=== PATIENT | female | born 1965 | race Caucasian/White ===

== ENCOUNTER 2022-06-24 14:59 | Outpatient (CLI) | payer OTHER ==
[2022-06-24 15:47] VITALS: BP 118/70
--- NOTE | 2022-06-24 15:47 | SLEEP CARE CONSULTATION ---
Information from patient questionnaire entered by Lashay Diaz. I have reviewed and concur with the information entered by Lashay Diaz. This document represents the service I personally performed and the decisions made by me, Rosa M Ball ARNP. History of Present Illness Service Date and Time: 06/24/2022 1459 Reason for Visit: New patient, Previously diagnosed sleep apnea, sleep apnea on CPAP therapy Chief Complaint: reports: Insomnia, Snoring, Excessive daytime sleepiness Date of Onset: 10YRS Usual bedtime: 12AM Time it takes to fall asleep: 1HR+ Snores at night: Yes Observed to quit breathing while asleep: Yes Sleeps alone due to snoring: No Number of times waking at night: 2 Reasons for waking at night: reports: Choking, Snoring, Pain Toss, Turn, or Twitch while sleeping: Yes Recalls having dreams: No Usually gets out of bed at: 6AM Feels refreshed in the morning: Yes Morning headache: Yes (RESOLVES AFTER MEDS AND WATER) Sleepy or fatigued during the day: Yes Ever fallen asleep while driving: Yes Takes day naps: Yes Dreams during day naps: No Prior sleep studies: Yes (DEVIN HASSAN 2014) Additional HPI information: ALFREDITO SARAH was previously diagnosed to have unknown, AHI unknown, sleep apnea-hypopnea syndrome and comes in today to establish care for CPAP therapy. - Parasomnia Symptoms Ever been unable to move upon waking from sleep: No Walks in sleep: No Talks in sleep: No Ever acted out dreams in sleep: No Ever felt weak in the knees when startled or emotional: No Bothered by creepy, crawly, restless sensations in legs: Yes Problems with memory or concentration: Yes CPAP Compliance Data - Data Reviewed with Patient Average duration of nightly device use: 7 hours 16 minutes Compliance rate %: 94 (89/90 days used) Current pressure setting (cmH2O): 13 Average residual AHI: 0.8 Central apnea: 0.1 Obstructive apnea: 0.5 Compliance data discussion: She has a ResMed Airsense 10 last set up 08/2015. She states she is "sabianism" about using her CPAP, loves it. She is using a Dreamwear nasal cushion. She used to get supplies in [place] but has been about 2 years since she has been able to get supplies. Subjective Patient concerns: reports: dry mouth, nose, throat (sometimes, water used up in 2 nights). denies: aerophagia, mask discomfort, air blowing in eyes, mask leak noise, condensation in mask/hose, nasal congestion, epistaxis Observed to snore while using device: No Current pressure setting perceived as: comfortable On therapy, patient: reports: sleeping better, awakening more refreshed, being more awake and alert during the day, more rested overall. denies: drowsiness while driving Initial [place] Sleepiness Scale score: 20 (06/24/22) Past Medical History Past Medical History: reports: Diabetes, Arthritis, Anxiety, Depression, GERD, Other (NEUROPATHY, RESTLESS LEGS ) Social History The patient's occupation is a RE. Patient is and lives in . Have you smoked in the past 12 months: No Years of smokin Quit date: 2002 Alcohol use: No Caffeine use: Yes Caffeine amount and frequency: 2 CUPS DAILY Family History Family history of sleep disordered breathing: Yes (2 children have sleep apnea (son, daughter)) Family Hx Sleep Apnea: Father: Snoring, Sleep apnea - Untreated, Sibling: Snoring, Sleep apnea - Treated Allergies and Home Medications Known drug allergies: Yes (PENICILLIN SULFA METFORMIN ) Drug allergies reviewed: Yes Home medication list reviewed: Yes (see updated list in EMR) Review of Systems Weight gain over past 5 years: 45 Cardiovascular: reports: palpitations, leg or foot swelling Respiratory: reports: shortness of breath Gastrointestinal: reports: heartburn, difficulty swallowing, nausea, diarrhea Neurological: reports: headaches, disorientation, gait or balance problems Psychiatric: reports: Attention Deficit Hyperactivity, anxiety, depression Ear/Nose/Throat: reports: nasal congestion, sinus problems, tonsillectomy, wisdom teeth removed Endocrine: reports: sluggishness, too hot or cold Musculoskeletal: reports: joint pain, back pain Immunologic: reports: sneezing, allergies to food or environment Physical Exam Vital signs obtained and entered by: LASHAY Allen MA Blood Pressure: 118/70 (LEFT ARM) Cuff size: long Heart Rate: 78 O2 Saturation: 97 Height: 5 ft 5 in Weight: 286 lb 9.6 oz Body Mass Index: 47.7 BMI Classification: Morbidly Obese Neck circumference: 17.5 Impression and Plan 1. Obstructive Sleep Apnea-Hypopnea Syndrome, unknown, with good treatment compliance and good apnea control. On CPAP therapy, the patient has better sleep quality and is more rested overall. She moved her from [place] and does not have a copy of her last sleep study. She is not sure she can get this. We will try but I will go ahead and order a sleep study to verify diagnosis and severity with a 45 pound weight gain over the last few years. Patient's apnea severity and rationale for treatment to reduce apnea, improve sleep quality and reduce cardiovascular and cerebrovascular events was reviewed. I also reviewed the benefit of consistent device use of CPAP for diabetes, gastric reflux and depression. 2. Obesity, unspecified. Currently patients BMI is 47.7. Obesity increases the risk of apnea, CPAP pressure requirements and overall health risks especially cardiovascular and diabetes. Thus patient is advised to lose weight. * Continue auto CPAP pressure at 13 cmH2O * PSG/HST to verify diagnosis and severity * Transfer DME once we have a copy of sleep study or after sleep study completed * Update supplies and machine once we have sleep study * Notify me if snoring with mask or feeling that the pressure is too much or too little * Attempt to lose weight * Call this office if any problems using CPAP * Return for follow up after sleep study or one month after obtaining new device, or sooner if concerns arise Counseling Topics: Spare mask, Weight loss health impact Visit Type: In Office Time Spent with Patient (minutes): 35 Provider Statement: I spent 100% of the Face to Face Visit with the patient with greater than 50% spent counseling the patient and coordination of care.
== END 2022-06-24 15:00 | disposition home or self-care (01) ==
LOC: SC 14:59
PROVIDERS: ATTEND Nurse Practitioner Family
DX: G47.33 Obstructive sleep apnea (adult) (pediatric) (principal); E66.01 Morbid (severe) obesity due to excess calories; Z68.42 Body mass index [BMI] 45.0-49.9, adult; Z87.891 Personal history of nicotine dependence
CPT/HCPCS: 99203; 99212

== ENCOUNTER 2022-12-16 13:38 | Emergency (ER) | payer OTHER ==
[2022-12-16] MEDS ORDERED: SODIUM CHLORIDE 0.9% 1,000 ML IV STA (14:11)
[2022-12-16] MEDS ORDERED: ONDANSETRON 4 MG/2 ML VIAL IVP STA (14:11)
[2022-12-16] MEDS ORDERED: LACTATED RINGERS 1,000 ML IV STA (14:11)
--- NOTE | 2022-12-16 14:12 | ED Physician Documentation ---
PD HPI ABD PAIN - Stated complaint Stated Complaint: N/V/D,SOA,LIGHT HEADED - Chief complaint Chief Complaint: Abd Pain - History obtained from History obtained from: Patient - Additional information Additional information: 57-year-old woman with history of HTN, HLD, IBS, remote oophorectomy and type II DM on Trulicity. 4 days ago developed diarrhea and stomach cramping and now has had progressive nausea and cannot keep anything down today. Her stomach really only hurts when she hides to eat something. No fevers but has had some chills. She notes that her dog was recently diagnosed with Giardia. No recent travel, camping, or antibiotic use. PD PAST MEDICAL HISTORY - Present Medications Home Medications: Ambulatory Orders Medication Instructions Recorded Confirmed Atorvastatin Calcium See Rx Instructions .ROUTE .COMPLEX 06/24/22 12/16/22 Celecoxib [CeleBREX] See Rx Instructions .ROUTE .COMPLEX 06/24/22 12/16/22 Cetirizine [ZyrTEC] See Rx Instructions .ROUTE .COMPLEX 06/24/22 12/16/22 Dulaglutide [Trulicity] See Rx Instructions .ROUTE .COMPLEX 06/24/22 12/16/22 Lisinopril [Zestril] See Rx Instructions .ROUTE .COMPLEX 06/24/22 12/16/22 Multivitamin See Rx Instructions .ROUTE .COMPLEX 06/24/22 12/16/22 Omeprazole See Rx Instructions .ROUTE .COMPLEX 06/24/22 12/16/22 Pregabalin [Lyrica] See Rx Instructions .ROUTE .COMPLEX 06/24/22 12/16/22 Sertraline [Zoloft] See Rx Instructions .ROUTE .COMPLEX 06/24/22 12/16/22 Ciprofloxacin HCl [Cipro] 500 mg PO BID #14 tablet 12/16/22 Metoclopramide [Reglan] 10 mg PO Q6H PRN #20 tablet 12/16/22 metroNIDAZOLE [Flagyl] 500 mg PO TID 7 Days #21 tablet 12/16/22 - Allergies Allergies/Adverse Reactions: Allergies Allergy/AdvReac Type Severity Reaction Status Date / Time metformin Allergy Unknown Verified 12/16/22 13:51 Penicillins Allergy Unknown Verified 12/16/22 13:51 PD ED PE NORMAL - Vitals Vital signs reviewed: Yes - General General: Alert and oriented X 3, No acute distress - Abdomen Abdomen: Normal bowel sounds, Soft, Non tender - Neuro Neuro: Alert and oriented X 3, Normal speech Results - Vitals Vitals: Vital Signs - 24 hr 12/16/22 12/16/22 12/16/22 13:46 15:59 17:58 Temperature 37.3 C Heart Rate 115 H 98 81 Respiratory 18 20 20 Rate Blood Pressure 128/85 H 119/77 101/55 L O2 Saturation 96 100 92 12/16/22 12/16/22 19:00 20:28 Temperature Heart Rate 84 85 Respiratory 18 18 Rate Blood Pressure 114/56 L 100/68 O2 Saturation 100 99 Oxygen O2 Source Room air - Labs Labs: Laboratory Tests 12/16/22 12/16/22 14:25 14:25 WBC 18.4 H RBC 5.41 H Hgb 14.5 Hct 44.4 MCV 82.1 MCH 26.8 L MCHC 32.7 RDW 13.2 Plt Count 317 MPV 9.9 Neut # (Auto) 15.5 H Lymph # (Auto) 1.6 Grayson # (Auto) 1.2 H Eos # (Auto) 0.0 Baso # (Auto) 0.1 Absolute Nucleated RBC 0.00 Nucleated RBC % 0.0 Sodium 138 Potassium 3.4 L Chloride 104 Carbon Dioxide 25 Anion Gap 9.0 BUN 13 Creatinine 1.0 Estimated GFR (MDRD) 57 L Glucose 144 H Calcium 9.4 Total Bilirubin 0.8 AST 17 ALT 21 Alkaline Phosphatase 92 Total Protein 7.4 Albumin 4.3 Globulin 3.1 Albumin/Globulin Ratio 1.4 Lipase 23 - Rads (name of study) ct a/p Relevant Findings:: Final report received, EMP independent interpretation of test PD Medical Decision Making - ED course ED course: 57-year-old woman presents with abdominal pain, vomiting and diarrhea. She has a modestly elevated white count on CBC which was otherwise normal CMP which was grossly negative. CT showing colitis. In the emergency department she was treated with IV fluids, 2 L of crystalloid, and Zofran which was unhelpful but Reglan and Toradol which was fairly helpful for her pain and nausea. She was unable to have a bowel movement in the department. So we were unable to collect stool for studies, but CT showing colitis so reasonable to treat with Cipro and Flagyl. Departure - Departure Disposition: 01 Home, Self Care Clinical Impression: Colitis Condition: Good Record reviewed to determine appropriate education?: Yes Instructions: ED Gastroenteritis Bacterial Prescriptions: Ciprofloxacin HCl [Cipro] 500 mg PO BID #14 tablet metroNIDAZOLE [Flagyl] 500 mg PO TID 7 Days #21 tablet Metoclopramide [Reglan] 10 mg PO Q6H PRN #20 tablet PRN Reason: nausea or headache Comments: You were seen today for abdominal pain nausea and diarrhea. Your white blood cell count was out elevated and the CT was showing mild ascending colitis which does fit the clinical picture. For this I am sending antibiotics and nausea medicine up to [facility] in [place]. Return if worse. Follow-up with your primary care physician in 2 days for recheck. Given that she had a colonoscopy in the last year, unlikely that that would be of further diagnostic benefit after this event but you can also discuss this with your primary as well. Forms: PCP List Discharge Date/Time: 12/16/22 20:29
[2022-12-16 14:39] LABS: BASOPHILS # (AUTO) 0.1 10^3/uL (0.0-0.1); BASOPHILS % (AUTO) 0.4 %; EOSINOPHILS % (AUTO) 0.2 %; HCT - HEMATOCRIT 44.4 % (37.0-47.0); HGB - HEMOGLOBIN 14.5 g/dL (12.0-16.0); LYMPHOCYTES # (AUTO) 1.6 10^3/uL (1.5-3.5); LYMPHOCYTES % (AUTO) 8.5 %; MEAN CORPUSCULAR HEMOGLOBIN 26.8 pg (27.0-31.0); MEAN CORPUSCULAR HGB CONC 32.7 g/dL (32.0-36.0); MEAN CORPUSCULAR VOLUME 82.1 fL (81.0-99.0); MEAN PLATELET VOLUME 9.9 fL (7.9-10.8); MONOCYTES # (AUTO) 1.2 10^3/uL (0.0-1.0); MONOCYTES % (AUTO) 6.3 %; NEUTROPHILS # (AUTO) 15.5 10^3/uL (1.5-6.6); NEUTROPHILS % (AUTO) 84.2 %; PLT - PLATELET COUNT 317 10^3/uL (130-450); RED BLOOD COUNT 5.41 10^6/uL (4.20-5.40); RED CELL DISTRIBUTION WIDTH 13.2 % (12.0-15.0); WHITE BLOOD COUNT 18.4 x10^3/uL (4.8-10.8)
[2022-12-16 15:00] LABS: ALBUMIN 4.3 g/dL (3.2-5.5); ALBUMIN/GLOBULIN RATIO 1.4 (1.0-2.2); BILIRUBIN,TOTAL 0.8 mg/dL (0.2-1.0); CALCIUM 9.4 mg/dL (8.5-10.3); POTASSIUM 3.4 mmol/L (3.5-4.5); TOTAL PROTEIN 7.4 g/dL (6.4-8.9)
[2022-12-16] MEDS ORDERED: KETOROLAC 15 MG/ML VIAL IVP STA (15:27)
[2022-12-16] MEDS ORDERED: METOCLOPRAMIDE 10 MG/2 ML VIAL IVP STA (15:27)
[2022-12-16] MEDS ORDERED: iohexoL-300 100 ML VIAL IVP ONE (19:40)
--- NOTE | 2022-12-16 19:53 | CT Report ---
PROCEDURE: ABDOMEN/PELVIS W INDICATIONS: IV only, abd pain CONTRAST: 100mL Omni 300 TECHNIQUE: After the administration of intravenous contrast, 5 mm thick sections acquired from the diaphragms to the symphysis. 5 mm thick coronal and sagittal reformats were acquired. For radiation dose reducti on, the following was used: automated exposure control, adjustment of mA and/or kV according to monisha ent size. COMPARISON: None FINDINGS: Image quality: Decreased due to body habitus and technical artifacts.. Lung bases and heart: Unremarkable. Liver: Mild hepatomegaly and moderate diffuse hypodensity indicating steatosis. Gallbladder and biliary tree: Normal gallbladder and nondilated biliary tree. Spleen: No splenomegaly. Pancreas: Normal pancreas. Adrenals: No adrenal nodule. Kidneys and ureters: No hydronephrosis. No renal cystic lesion which requires follow up. No solid mas s. Bowel and peritoneum: The stomach is decompressed. Small bowel loops are nondilated. There is possibl e mild diffuse wall thickening of the proximal colon, though this is compromised by technical artifac t. No discrete inflamed diverticula or focal pericolic inflammation. There is occasional sigmoid dive rticulosis. The appendix is normal. Several shotty right lower quadrant mesenteric lymph nodes are pr esent. No suspicious bulky adenopathy. Lymph nodes: No central or retroperitoneal adenopathy. Vessels: No infrarenal aortic aneurysm. PELVIS Reproductive organs: Normal CT appearance. Bladder: No abnormal wall thickening, accounting for underdistension. Pelvic lymph nodes: No pelvic adenopathy by size criteria. Bones: No aggressive osseous abnormality. Other: No significant ventral or inguinal hernia. IMPRESSION: 1. Findings of possible mild ascending colitis, most likely infectious, inflammatory in etiology. Thi s is probably accentuated by technical artifact. 2. No acute appendicitis. 3. Mild hepatomegaly and hepatic steatosis. Reviewed by: Tashia Whipple MD on 12/16/2022 7:52 PM PDT Approved by: Tashia Whipple MD on 12/16/2022 7:52 PM PDT Station ID: [id number]
[2022-12-16] MEDS ORDERED: metroNIDAZOLE 250 MG TABLET PO STA (20:02)
[2022-12-16] MEDS ORDERED: CIPROFLOXACIN 250 MG TABLET PO STA (20:02)
[2022-12-16] MEDS ORDERED: METOCLOPRAMIDE 10 MG TABLET PO STA (20:02)
[2022-12-16 20:33] VITALS: BP 100/68; O2SAT 99
== END 2022-12-16 20:29 | disposition home or self-care (01) ==
LOC: ED 13:38
DX: K52.9 Noninfective gastroenteritis and colitis, unspecified (principal); E11.9 Type 2 diabetes mellitus without complications; Z79.85 Long-term (current) use of injectable non-insulin antidiabetic drugs
CPT/HCPCS: 36415; 74177; 80053; 83690; 85025; 96374; 96375; 99284; A9270; J2765; J7120; Q9967; 87328; 87329